=== PATIENT | male | born 1985 | race Caucasian/White ===

== ENCOUNTER 2017-08-15 12:18 | Emergency (ER) | payer BC, OTHER ==
[2017-08-15 14:28] VITALS: BP 128/74
--- NOTE | 2017-08-15 14:56 | UC ---
Respiratory Complaint HPI - HPI Summary HPI Summary: cough, nasal and chest congestion fever/chills, no c/o sore throat but hurts to swallow. fiance sick at home also. symptoms going on for 1 1/2 days - History of Current Complaint Chief Complaint: UCRespiratory Stated Complaint: FEVER/CONGESTION Time Seen by Provider: 08/15/17 14:45 Hx Obtained From: Patient Onset/Duration: Sudden Onset Severity Initially: Moderate Severity Currently: Moderate Associated Signs And Symptoms: Positive: Fever, Chills, Nasal Congestion - Risk Factors Pulmonary Embolism Risk Factors: Negative Cardiac Risk Factors: Negative Pseudomonas Risk Factors: Negative - Allergies/Home Medications Allergies/Adverse Reactions: Allergies Allergy/AdvReac Type Severity Reaction Status Date / Time No Known Allergies Allergy Verified 08/15/17 14:28 PMH/Surg Hx/FS Hx/Imm Hx Previously Healthy: Yes - Surgical History Surgical History: None Surgery Procedure, Year, and Place: something on neck removed as an infant - Family History Known Family History: Positive: None - Social History Alcohol Use: Rare Substance Use Type: None Smoking Status (MU): Heavy Every Day Tobacco Smoker Type: eCigarettes Amount Used/How Often: 1/2 pack daily Household Exposure Type: Cigarettes Review of Systems Constitutional: Fever, Chills Skin: Negative Eyes: Negative ENT: Ear Ache, Nasal Discharge, Sinus Congestion Respiratory: Cough Cardiovascular: Negative Gastrointestinal: Negative Genitourinary: Negative Neurological: Negative Psychological: Negative Is Patient Immunocompromised?: No All Other Systems Reviewed And Are Negative: Yes Physical Exam Triage Information Reviewed: Yes Appearance: Ill-Appearing Vital Signs: Initial Vital Signs Temp 98.2 F 08/15/17 14:25 Pulse 100 08/15/17 14:25 Resp 18 08/15/17 14:25 BP 128/74 08/15/17 14:25 Pulse Ox 99 08/15/17 14:25 Vital Signs Reviewed: Yes ENT: Positive: Pharyngeal erythema, Nasal congestion, TM bulging, Hoarse voice Respiratory Exam: Normal Cardiovascular Exam: Normal Bowel Sounds: Positive: Present Neurological Exam: Normal Psychological Exam: Normal Skin Exam: Normal UC Diagnostic Evaluation - Laboratory O2 Sat by Pulse Oximetry: 99 Respiratory Course/Dx - Course Course Of Treatment: take abx with food to reduce GI upset. increase fluid intake daily to prevent dehydration. take ibuprofen or tylenol every 4-6 hours prn pain/fever. f/u pcp 1 week - Differential Dx/Diagnosis Provider Diagnoses: sinusitis Discharge - Discharge Plan Condition: Good Disposition: HOME Prescriptions: Amoxicillin PO (*) [Amoxicillin 875 MG (*)] 875 mg PO BID 10 Days #20 tab Patient Education Materials: Sinusitis (ED) Referrals: NADIA Miller [Primary Care Provider] - 1 Week
== END 2017-08-15 15:13 | disposition home or self-care (01) ==
LOC: UCCORT 12:18
DX: J32.9 Chronic sinusitis, unspecified (principal); R50.9 Fever, unspecified; Z72.0 Tobacco use
CPT/HCPCS: 99212; G0463

== ENCOUNTER 2017-08-27 09:27 | Emergency (ER) | payer BC ==
[2017-08-27 10:11] VITALS: BP 127/82
--- NOTE | 2017-08-27 10:28 | UC ---
Throat Pain/Nasal Ramsey HPI - HPI Summary HPI Summary: was being treated with Amoxicillin for a sinus infection---did not take exactly as rx---now has sores on back of throat--no fevers , chills nausea or vomiting - History of Current Complaint Chief Complaint: UCRespiratory Stated Complaint: ST Time Seen by Provider: 08/27/17 10:20 Hx Obtained From: Patient Onset/Duration: Sudden Onset, Lasting Days, Still Present Severity: Moderate - Allergies/Home Medications Allergies/Adverse Reactions: Allergies Allergy/AdvReac Type Severity Reaction Status Date / Time No Known Allergies Allergy Verified 08/27/17 10:01 Home Medications: Home Medications Naproxen TAB* [Naprosyn 250 mg TAB*] 500 mg PO Q8H PRN 08/27/17 [History Confirmed 08/27/17] PMH/Surg Hx/FS Hx/Imm Hx Previously Healthy: Yes - Surgical History Surgical History: None Surgery Procedure, Year, and Place: something on neck removed as an infant - Family History Known Family History: Positive: None - Social History Occupation: Employed Full-time - at [employer] Lives: With Family Alcohol Use: Rare Substance Use Type: None Smoking Status (MU): Heavy Every Day Tobacco Smoker Type: Cigarettes, eCigarettes Amount Used/How Often: 1/2 PPD Have You Smoked in the Last Year: Yes Household Exposure Type: Cigarettes Cessation Counseling: Counseled 3+Min - 10 Min - Immunization History Most Recent Influenza Vaccination: NOT IN 2016 Review of Systems Constitutional: Negative Skin: Negative Eyes: Negative ENT: Sore Throat - erythema with wite lesion on throat Respiratory: Negative Cardiovascular: Negative Gastrointestinal: Negative Genitourinary: Negative Motor: Negative Neurovascular: Negative Musculoskeletal: Negative Neurological: Negative Psychological: Negative Is Patient Immunocompromised?: No All Other Systems Reviewed And Are Negative: Yes Physical Exam Triage Information Reviewed: Yes Appearance: Well-Appearing, No Pain Distress, Well-Nourished Vital Signs: Initial Vital Signs Temp 98.9 F 08/27/17 10:04 Pulse 68 08/27/17 10:04 Resp 16 08/27/17 10:04 BP 127/82 08/27/17 10:04 Pulse Ox 99 08/27/17 10:04 Vital Signs Reviewed: Yes Eye Exam: Normal Eyes: Positive: Conjunctiva Clear ENT Exam: Normal ENT: Positive: Normal ENT inspection, Hearing grossly normal, Pharyngeal erythema, TMs normal, Uvula midline. Negative: Nasal congestion, Tonsillar swelling, Tonsillar exudate, Trismus, Muffled voice, Hoarse voice, Dental tenderness, Sinus tenderness Dental Exam: Normal Neck exam: Normal Neck: Positive: Supple, Nontender, No Lymphadenopathy Respiratory Exam: Normal Respiratory: Positive: Chest non-tender, Lungs clear, Normal breath sounds, No respiratory distress, No accessory muscle use Cardiovascular Exam: Normal Cardiovascular: Positive: RRR, No Murmur, Pulses Normal, Brisk Capillary Refill Musculoskeletal Exam: Normal Musculoskeletal: Positive: Strength Intact, ROM Intact, No Edema Neurological Exam: Normal Neurological: Positive: Alert, Muscle Tone Normal Psychological Exam: Normal Skin Exam: Normal Diagnostics - Laboratory Diagnostic Studies Completed/Ordered: strep (-) Throat Pain/Nasal Course/Dx - Course Course Of Treatment: and magic mouth wash rest increase fluids tylenol, ibuprofen for pain follow with pcp, nicotine cesasation information provided - Differential Dx/Diagnosis Provider Diagnoses: Nicotine dependent, viral stomatitis Discharge - Discharge Plan Condition: Stable Disposition: HOME Prescriptions: Acyclovir [Zovirax] 400 mg PO SEE INSTRUCTIONS #25 tab Magic Mouth Was-AAKASH/MAAL/LIDO* 5 ml SWISH SWAL QID #120 ml Patient Education Materials: How to Stop Smoking (ED), Gingivostomatitis (ED) Forms: *Work Release Referrals: NADIA Miller [Primary Care Provider] - If Needed
== END 2017-08-27 11:17 | disposition home or self-care (01) ==
LOC: UCCORT 09:27
DX: K12.1 Other forms of stomatitis (principal); Z72.0 Tobacco use
CPT/HCPCS: 87651; 99212; G0463

== ENCOUNTER 2018-12-07 17:56 | Emergency (ER) | payer BC ==
[2018-12-07 19:13] VITALS: BP 135/78
--- NOTE | 2018-12-07 19:25 | UC ---
Throat Pain/Nasal Ramsey HPI - HPI Summary HPI Summary: Patient started experiencing allergy type symptoms yesterday with sneezing, runny nose, itchy eyes. He states that he does have allergies but takes no medicine for that. States today he has more head congestion and symptoms similar to an upper respiratory illness. - History of Current Complaint Chief Complaint: UCRespiratory Stated Complaint: COUGH SNEEZING BODY ACHES Time Seen by Provider: 12/07/18 18:50 Hx Obtained From: Patient Onset/Duration: Gradual Onset Severity: Mild Pain Intensity: 6 Cough: None Associated Signs & Symptoms: Positive: Nasal Discharge - Runny nose, itchy eyes , head congestion Related History: Seasonal Allergies - Epiglottits Risk Factors Epiglottis Risk Factors: Negative - Allergies/Home Medications Allergies/Adverse Reactions: Allergies Allergy/AdvReac Type Severity Reaction Status Date / Time No Known Allergies Allergy Verified 12/07/18 19:06 Home Medications: Home Medications Omeprazole 20 mg PO DAILY 12/07/18 [History Confirmed 12/07/18] Phenylephrine HCl [Sudafed PE] 10 mg PO PRN 12/07/18 [History] PMH/Surg Hx/FS Hx/Imm Hx Previously Healthy: Yes Other Respiratory History: seasonal allergies - Surgical History Surgical History: None Surgery Procedure, Year, and Place: something on neck removed as an infant - Family History Known Family History: Positive: None - Social History Alcohol Use: None Substance Use Type: None Smoking Status (MU): Heavy Every Day Tobacco Smoker Type: Cigarettes, eCigarettes Amount Used/How Often: 1/2 PPD Have You Smoked in the Last Year: Yes Household Exposure Type: Cigarettes - Immunization History Most Recent Influenza Vaccination: NOT IN 2017 Review of Systems All Other Systems Reviewed And Are Negative: Yes Eyes: Positive: Other - watery eyes ENT: Positive: Nasal Discharge, Other - Chest and Respiratory: Positive: Other - Sneezing Is Patient Immunocompromised?: No Physical Exam Triage Information Reviewed: Yes Appearance: Well-Appearing, No Pain Distress, Well-Nourished Vital Signs: Initial Vital Signs Temp 98.4 F 12/07/18 19:07 Pulse 90 12/07/18 19:07 Resp 19 12/07/18 19:07 BP 135/78 12/07/18 19:07 Pulse Ox 100 12/07/18 19:07 Vital Signs Reviewed: Yes Eye Exam: Normal ENT: Positive: Pharynx normal, Nasal congestion, Nasal drainage - Clear Nasal coryza, TMs normal, Uvula midline. Negative: Trismus, Muffled voice Neck exam: Normal Respiratory: Positive: Lungs clear, Normal breath sounds, No respiratory distress, No accessory muscle use Cardiovascular: Positive: RRR, No Murmur, Pulses Normal Abdominal Exam: Normal Bowel Sounds: Positive: Present Musculoskeletal Exam: Normal Neurological Exam: Normal Psychological Exam: Normal Skin Exam: Normal Throat Pain/Nasal Course/Dx - Course Course Of Treatment: Patient has been comfortable here. I think his symptoms are more consistent with allergic rhinitis as well as upper respiratory illness. I'm giving him Flonase to use and advised him to pickup Claritin and take that daily. Follow- up with primary care provider if no improvement in 3 or 4 days. - Differential Dx/Diagnosis Provider Diagnosis: Allergic rhinitis, URI (upper respiratory infection) Discharge - Sign-Out/Discharge Documenting (check all that apply): Patient Departure All imaging exams completed and their final reports reviewed: No Studies - Discharge Plan Condition: Fair Disposition: HOME Prescriptions: Fluticasone NASAL SPRAY 50MCG* [Flonase NASAL SPRAY 50MCG*] 2 spray BOTH NARES DAILY 7 Days #1 btl Patient Education Materials: Upper Respiratory Infection (DC), Allergic Rhinitis (DC) Referrals: Elaine Rojas PA [Primary Care Provider] - Additional Instructions: Purchase Claritin 10 mg take 1 tablet daily. Use the Flonase nasal spray 2 sprays in each nostril once a day for one week and then decrease to 1 spray in each nostril throughout your allergy season. Follow-up with your primary care provider if no improvement in 4 or 5 days. - Billing Disposition and Condition Condition: FAIR Disposition: Home - Attestation Statements Provider Attestation: Per institutional requirements, I have reviewed the chart, however, I was not consulted specifically or made aware of this patient by the midlevel provider. I did not personally evaluate, interact with , or disposition this patient.
== END 2018-12-07 19:31 | disposition home or self-care (01) ==
LOC: UCCORT 17:56
DX: J30.9 Allergic rhinitis, unspecified (principal); J06.9 Acute upper respiratory infection, unspecified; F17.210 Nicotine dependence, cigarettes, uncomplicated
CPT/HCPCS: 99212; G0463